=== PATIENT | male | born 1940 | race Caucasian/White ===

== ENCOUNTER 2016-07-29 22:18 | Emergency (ER) | payer OTHER ==
[2016-07-29] MEDS ORDERED: OPTIRAY 350 100 ML VIAL HMH IV ONE (22:19)
[2016-07-29] MEDS ORDERED: SODIUM CHLORIDE 0.9% 1,000 ML ONE (23:15)
[2016-07-29] MEDS ORDERED: ONDANSETRON 4 MG VIAL ONE (23:15)
[2016-07-30] MEDS ORDERED: ED METRONIDAZOLE IV 100 ML IV ONE (06:28)
== END 2016-07-30 09:42 ==
LOC: ER 22:18
CPT/HCPCS: 36415 ×2; 74022 ×2; 74177 ×2; 80053 ×2; 85025 ×2; 87045 ×2; 87046 ×2; 87493 ×2; 96361 ×2; 96365 ×2; 96366 ×2; 96375 ×2; 99284; J2405; Q9967